=== PATIENT | male | born 1995 | race African-American/Black ===

== ENCOUNTER 2021-08-31 03:19 | Emergency (ER) | payer OTHER ==
[~2021-08-31] VITALS: Ht 185.4 cm; Wt 108.9 kg
[2021-08-31 03:40] VITALS: BP 141/85
--- NOTE | 2021-08-31 03:40 | NUR ---
Q TIP STUCK IN R EAR 4 HOURS AGO. PT A.[id number]. TOLERATING R/A WELL WITH NO SOB. CONNECTED PT TO POX AND MONITOR. SAFETY MEASURES IN PLACE.
== END 2021-08-31 04:07 | disposition home or self-care (01) ==
LOC: ER 03:28
DX: T16.1XXA Foreign body in right ear, initial encounter (principal); Z60.2 Problems related to living alone; X58.XXXA Exposure to other specified factors, initial encounter; Y93.89 Activity, other specified; Y92.89 Other specified places as the place of occurrence of the external cause; Y99.8 Other external cause status